=== PATIENT | male | born 1975 | race Caucasian/White ===

== ENCOUNTER → 2018-08-01 15:25 | Outpatient (CLI) | payer BC, SELFPAY ==
--- NOTE | 2018-08-01 15:38 | EKG12_ITS ---
Test Reason : PREOP Blood Pressure : / mmHG Vent. Rate : 094 BPM Atrial Rate : 094 BPM P-R Int : 182 ms QRS Dur : 086 ms QT Int : 330 ms P-R-T Axes : 036 050 024 degrees QTc Int : 412 ms Normal sinus rhythm with sinus arrhythmia Normal ECG When compared with ECG of 18-JAN-2016 05:19, [place] interval has decreased Confirmed by DUSTIN GONZALEZ [id number]), features editor ADAM RAMÍREZ ([id number] on 08/04/2018 9:37:59 AM Referred By: Doe Morelos Confirmed By:DUSTIN GONZALEZ
[2018-08-01 17:16] LABS: Hematocrit 45.9 % (40-54); Hemoglobin 15.6 g/dl (13.0-16.5); Mean Corpuscular Hgb 31.6 pg (27.0-32.0); Mean Corpuscular Volume 93.1 fL (80-94); Mean Platelet Vol. 10.1 fl (6.2-12.0); Platelet Count 271 K/mm3 (150-450); RBC Distribution Width CV 13.7 % (11.6-14.6); RBC Distribution Width SD 46.4 fl (35.1-43.9); Red Blood Count 4.93 M/mm3 (4.6-6.2); White Blood Count 10.1 K/mm3 (4.4-11.0)
[2018-08-01 17:23] LABS: Scan Indicated on CBC? Y/N NO
[2018-08-01 17:44] LABS: Anion Gap 7 (5-15); BUN 21 mg/dL (7-18); BUN/Creat Ratio 15.3 RATIO (10-20); Calcium,Total 8.7 mg/dL (8.5-10.1); Chloride 103 mmol/L (98-107); Creatinine, Serum 1.37 mg/dL (0.70-1.30); EST Glomerular Filtration Rate 61 mL/min (>60); Est Glom Filt Rate - Afr Amer 74 mL/min (>60); Glucose 85 mg/dL (74-106); Potassium 3.9 mmol/L (3.5-5.1); Sodium Level 139 mmol/L (136-145)
--- OUTSIDE RECORDS SUMMARY | 2018-09-26 14:31 | XMS RPT_ITS ---
:1975 Author Organization OHIP Care Team Providers Name Role Phone ORLIN THORPE Attending Unavailable ORLIN THORPE Referring Unavailable ORLIN THORPE Referring Unavailable LIZ HERNANDEZ Attending Unavailable ORLIN THORPE Referring Unavailable ORLIN THORPE Attending Unavailable ORLIN THORPE Referring Unavailable JULES TAYLOR ([facility]) Referring Unavailable ORLIN THORPE Referring Unavailable JULES TAYLOR ([facility]) Attending Unavailable Saleem Gonzalez Attending Unavailable Maurizio Morelos Referring Unavailable Maurizio Morelos Attending Unavailable Primay Care Physicia, No Primary Care Unavailable Maurizio Morelos Referring Unavailable PROBLEMS PROBLEMS DATE TYPE CONDITION / CODE ATTENDING STATUS SOURCE 08/11/2018 Unknown Z01.810 - Encounter Saleem Gonzalez Active [facility] for preprocedural [facility] examination / Repository Z01.810(ICD-10) 12/04/2017 Active Calculus of kidney / NA Active [facility] N20.0(ICD-10) [facility] [place] Repository 12/04/2017 Active Pure hyperglyceridemia NA Active [facility] / E78.1(ICD-10) [facility] [place] Repository 10/12/2016 Active Impaired fasting NA Active [facility] glucose / [facility] R73.01(ICD-10) [place] Repository 10/12/2016 Active Other specified NA Active [facility] abnormal findings of [facility] blood chemistry / [place] R79.89(ICD-10) Repository 11/23/2017 Active Other jail NA Active [place] (current) drug therapy [facility] / Z79.899(ICD-10) [place] Repository 11/23/2017 Active Encounter for NA Active [place] therapeutic drug level [facility] monitoring / [place] Z51.81(ICD-10) Repository PROCEDURES PROCEDURES No Procedure Records FoundRESULTS RESULTS PROGRESS Observed: 08/11/2018 Status: COMPLETED Source: [place] 11:21 AM [facility] REPOSITORY HNO ID: [id number] Author: Obdulia Samaniego LPN Service: (none) Author Type: (none) Type: Progress Notes Filed: 08/11/2018 11:25 AM Note Text: Manual Readin/86 Pulse: 102 Reason for blood pressure check - Last BP elevated Patient is: Taking medication as prescribed Yes Took medication today Yes If no, date medication last taken N/A Experiencing side effects No BP was elevated at last appt 06/11/18. No BP medication changes were made at that time. Taking all medications as prescribed. Recently nasal/sinus surgery (08/05/18). Denies any chest pain, shortness of breath, dizziness, or headaches. Occasional caffeine use. Current everyday tobacco use. Alert and oriented. Pt has been identified by name and birthdate: Yes Allergies reviewed: Yes Latex allergy: no. Medication - prescribed and OTC reviewed and updated: Yes Do you need any prescription refills prior to your next visit: No Health Maintenance: Reviewed and not up to date and provider notified Patient advised to continue with current medications and would be contacted with any further instructions after review by PCP. Obdulia Samaniego LPN CNNURSE Observed: 08/11/2018 Status: COMPLETED Source: [place] 11:15 AM [facility] REPOSITORY Nurse Visit (RUBINPWS) KATIE OLMEDO ([id number]) 1975 M Date Time Provider Department 08/11/18 11:15 AM [place] NURSE RUBINPWS During your visit today, we recorded the following information about you: Pulse Blood pressure 102/minute 128/86 Obdulia Samaniego LPN 08/11/2018 11:25 AM Signed Manual Readin/86 Pulse: 102 Reason for blood pressure check - Last BP elevated Patient is: Taking medication as prescribed Yes Took medication today Yes If no, date medication last taken N/A Experiencing side effects No BP was elevated at last appt 06/11/18. No BP medication changes were made at that time. Taking all medications as prescribed. Recently nasal/sinus surgery (08/05/18). Denies any chest pain, shortness of breath, dizziness, or headaches. Occasional caffeine use. Current everyday tobacco use. Alert and oriented. Pt has been identified by name and birthdate: Yes Allergies reviewed: Yes Latex allergy: no. Medication - prescribed and OTC reviewed and updated: Yes Do you need any prescription refills prior to your next visit: No Health Maintenance: Reviewed and not up to date and provider notified Patient advised to continue with current medications and would be contacted with any further instructions after review by PCP. Obdulia Samaniego LPN Referring Provider: SELF [[id number]] Allergies As of Date: 08/11/2018 (No Known Allergies) Date Reviewed: 06/11/2018 Reviewed by: Vivi Mendez LPN - Fully Assessed Reason for Visit: Blood Pressure Check [195] Primary Visit Diagnosis:Hypertension, essential [I10] Prescriptions as of 08/11/2018 Sig: LISINOPRIL 5 MG TABLET TAKE 1 TABLET DAILY LISINOPRIL 5 MG TABLET Take 1 tablet by mouth once d* TESTOSTERONE CYPIONATE 200 MG* INJECT 0.75 ML INTRAMUSCULARL* TAMSULOSIN 0.4 MG CAPSULE Take 1 capsule by mouth once * CHOLECALCIFEROL (VITAMIN D3) * Take 5,000 Units by mouth onc* CHOLECALCIFEROL (VITAMIN D3) * Take 1 tablet by mouth once d* Problem List As Of Date 08/11/2018 Noted Resolved Meibomian gland dysfunction (MGD) of upper and *INVALID FOR*10/12/2016 Acute bacterial conjunctivitis of both eyes [H1*INVALID FOR*10/12/2016 Vitreous floaters [H43.399] INVALID FOR*10/12/2016 Myopia [H52.10] INVALID FOR*10/12/2016 Astigmatism of both eyes [H52.203] INVALID FOR*10/12/2016 IFG (impaired fasting glucose) [R73.01] INVALID FOR* Vitamin D insufficiency [E55.9] INVALID FOR* Low testosterone level in male [R79.89] INVALID FOR* Elevated BP without diagnosis of hypertension [*INVALID FOR* Fatigue [R53.83] INVALID FOR* Hypertension, essential [I10] INVALID FOR* Hypertriglyceridemia [E78.1] INVALID FOR* Nephrolithiasis [N20.0] INVALID FOR* Obesity (BMI 30-39.9) [E66.9] INVALID FOR* Routine physical examination [Z00.00] INVALID FOR* Calcium oxalate dihydrate kidney stones [N20.0] INVALID FOR* Long-term current use of testosterone replaceme*INVALID FOR* Encounter Status:Closed by OBDULIA SAMANIEGO LPN on 08/11/18 12 LEAD ELECTROCARDIOGRAM Observed: 08/04/2018 Status: F Source: [place] 9:38 AM [facility] REPOSITORY [facility] Cardiovascular Services [address] [place] [id number] 12 Lead EKG 08/01/18 1605 MR#: [id number] Acct: [id number] Name: KATIE OLMEDO Rep #: [id number] : 1975 43 From: Saleem Gonzalez MD Attending Dr: Omkar Morelos MD Status: REG CLI Ordering Dr: Maurizio Morelos MD Date: 08/01/18 Location: LAB.FUTURE Sex: M C Admitted: Test Reason : PREOP Blood Pressure : / mmHG Vent. Rate : 094 BPM Atrial Rate : 094 BPM P-R Int : 182 ms QRS Dur : 086 ms QT Int : 330 ms P-R-T Axes : 036 050 024 degrees QTc Int : 412 ms Normal sinus rhythm with sinus arrhythmia Normal ECG When compared with ECG of 18-JAN-2016 05:19, TN interval has decreased Confirmed by SALEEM GONZALEZ ([id number]), rewrite editor ADAM RAMÍREZ ([id number]) on 08/04/2018 9:37:59 AM Referred By: Doe Morelos Confirmed By:SALEEM GONZALEZ 08/04/18 0938 Date Saleem Gonzalez MD CC: No Primary Care Physician; Omkar Morelos MD Signed CBC-COMPLETE BLOOD CNT Collected: 08/01/2018 Status: F Source: [place] NO DIFF 3:31 PM [facility] REPOSITORY TYPE CODE TESTS RESULT OUT OF RANGE REFERENCE UNITS LAB L100.1000 4.4-11.0 K/mm3 Normal WBC 10.1 LAB L100.1200 4.6-6.2 M/mm3 Normal RBC 4.93 LAB L100.1300 13.0-16.5 g/dl Normal HGB 15.6 LAB L100.1400 40-54 % Normal HCT 45.9 LAB L100.1500 80-94 fL Normal MCV 93.1 LAB L100.1600 27.0-32.0 pg Normal MCH 31.6 LAB L100.1700 32-36 g/gl Normal MCHC 34.0 LAB L100.1810 11.6-14.6 % Normal RDW CV 13.7 LAB L100.1820 35.1-43.9 fl High RDW SD 46.4 LAB L100.1900 150-450 K/mm3 Normal PLT 271 LAB L100.2000 6.2-12.0 fl Normal MPV 10.1 Performed By: #### L100.0500 #### [facility] [place], [address] BASIC METABOLIC Collected: 08/01/2018 Status: F Source: [place] PROFILE (BMP) 3:31 PM [facility] REPOSITORY TYPE CODE TESTS RESULT OUT OF RANGE REFERENCE UNITS LAB L501.0100 74-106 mg/dL Normal GLU 85 Result Comment: Please note revised GLUCOSE reference range effective 2017. LAB L501.1000 7-18 mg/dL High BUN 21 LAB L501.1100 0.70-1.30 mg/dL High CREAT,SERUM 1.37 Result Comment: The validity of the calculated GFR AND GFRAA in patients over 70 years has not been determined. Clinical correlation is essential. LAB L501.1110 >60 mL/min Normal EST GFR 61 Result Comment: Non- GFR Calc LAB L501.1115 >60 mL/min Normal EST GFR - AA 74 Result Comment: GFR Calc LAB L501.1300 10-20 RATIO Normal BUN/CRE 15.3 LAB L501.2200 8.5-10.1 mg/dL CA Normal 8.7 LAB L501.5300 136-145 mmol/L NA Normal 139 LAB L501.5600 3.5-5.1 mmol/L K Normal 3.9 Result Comment: Slight Hemolysis, Result may be falsely increased. LAB L501.5900 98-107 mmol/L Normal CL 103 LAB L501.6100 21.0-32.0 mmol/L Normal CO2 29.0 LAB L501.6200 5-15 Normal 7 GAP Performed By: #### L500.2500 #### [facility] [address] [place], [address] PROGRESS Observed: 07/18/2018 Status: COMPLETED Source: [place] 1:04 PM [facility] REPOSITORY HNO ID: [id number] Author: Farida Barnes Flaker Operator Service: (none) Author Type: (none) Type: Progress Notes Filed: 07/18/2018 1:05 PM Note Text: I spoke with Katie and he was open to coming in for a BP check with the Nurse. Appointment scheduled for 08/11/18. PROGRESS Observed: 07/18/2018 Status: COMPLETED Source: [place] 1:00 PM [facility] REPOSITORY HNO ID: [id number] Author: Farida Barnes Cma Service: (none) Author Type: (none) Type: Progress Notes Filed: 07/18/2018 1:05 PM Note Text: [facility] CARE GAP REGISTRY DOCUMENTATION (OUTSIDE TEAMLET) Provider Action/FYI: PSR Action/FYI: See if patient would be willing to come in for BP check (nurse visit) Patient identified by name and date of . Last BP/Labs: Blood Pressure: Last 3 Encounter BP Readings: Date: BP: 06/11/2018 130/100 03/04/2018 131/86 12/04/2017 100/70 Lipids: Cholesterol, Total (mg/dL) Date Value 05/31/2018 202 11/23/2017 174 HDL Cholesterol (mg/dL) Date Value 05/31/2018 42 11/23/2017 37 LDL Cholesterol (mg/dL) Date Value 05/31/2018 90 11/23/2017 Unable to calculate due to increased Triglycerides. See LDL-Chol, Direct. Triglyceride (mg/dL) Date Value 05/31/2018 348 11/23/2017 500 HGB A1C: Lab Results Component Value Date HBA1C 6.1 05/31/2018 HBA1C 6.2 11/23/2017 HBA1C 6.3 09/18/2016 TSH: TSH (uU/mL) Date Value 09/18/2016 3.290 02/08/2016 2.110 ) ? Patient has the following care gap registry disease diagnosis:HTN ? Hypertriglyceridemia ? Patient has the following open care gaps: Health Maintenance Due: BP CONTROLLED (<130/80) due on 1995 DTAP,TDAP,TD(1 - Tdap) due on 1996 ONE PNEUMOVAX PRIOR TO AGE 65 due on 1996 ? Last office visit: 11/18/2017 ? Future office visit:Nurse BP vist in next available Farida Barnes [facility] CNPTOUTREACH Observed: 07/18/2018 Status: COMPLETED Source: [place] 12:00 AM [facility] REPOSITORY Patient Outreach (INTMWS) KATIE OLMEDO ([id number]) 1975 M Date Time Provider Department 07/18/18 FARIDA BARNES ([facility]) INTMWS During your visit today, we recorded the following information about you: Farida Barnes Cma 07/18/2018 1:05 PM Signed [facility] CARE GAP REGISTRY DOCUMENTATION (OUTSIDE TEAMLET) Provider Action/FYI: PSR Action/FYI: See if patient would be willing to come in for BP check (nurse visit) Patient identified by name and date of . Last BP/Labs: Blood Pressure: Last 3 Encounter BP Readings: Date: BP: 06/11/2018 130/100 03/04/2018 131/86 12/04/2017 100/70 Lipids: Cholesterol, Total (mg/dL) Date Value 05/31/2018 202 11/23/2017 174 HDL Cholesterol (mg/dL) Date Value 05/31/2018 42 11/23/2017 37 LDL Cholesterol (mg/dL) Date Value 05/31/2018 90 11/23/2017 Unable to calculate due to increased Triglycerides. See LDL-Chol, Direct. Triglyceride (mg/dL) Date Value 05/31/2018 348 11/23/2017 500 HGB A1C: Lab Results Component Value Date HBA1C 6.1 05/31/2018 HBA1C 6.2 11/23/2017 HBA1C 6.3 09/18/2016 TSH: TSH (uU/mL) Date Value 09/18/2016 3.290 02/08/2016 2.110 ) ? Patient has the following care gap registry disease diagnosis:HTN ? Hypertriglyceridemia ? Patient has the following open care gaps: Health Maintenance Due: BP CONTROLLED (<130/80) due on 1995 DTAP,TDAP,TD(1 - Tdap) due on 1996 ONE PNEUMOVAX PRIOR TO AGE 65 due on 1996 ? Last office visit: 11/18/2017 ? Future office visit:Nurse BP vist in next available Farida Barnes [facility] Farida Barnes [facility] 07/18/2018 1:05 PM Signed I spoke with Katie and he was open to coming in for a BP check with the Nurse. Appointment scheduled for 08/11/18. Allergies As of Date: 07/18/2018 (No Known Allergies) Date Reviewed: 06/11/2018 Reviewed by: Vivi Mendez LPN - Fully Assessed Reason for Visit: PHMA/Care Gap Outreach [3605] Prescriptions as of 07/18/2018 Sig: TESTOSTERONE CYPIONATE 200 MG* INJECT 0.75 ML INTRAMUSCULARL* TAMSULOSIN 0.4 MG CAPSULE Take 1 capsule by mouth once * LISINOPRIL 5 MG TABLET Take 1 tablet by mouth once d* CHOLECALCIFEROL (VITAMIN D3) * Take 5,000 Units by mouth onc* CHOLECALCIFEROL (VITAMIN D3) * Take 1 tablet by mouth once d* Problem List As Of Date 07/18/2018 Noted Resolved Meibomian gland dysfunction (MGD) of upper and *INVALID FOR*10/12/2016 Acute bacterial conjunctivitis of both eyes [H1*INVALID FOR*10/12/2016 Vitreous floaters [H43.399] INVALID FOR*10/12/2016 Myopia [H52.10] INVALID FOR*10/12/2016 Astigmatism of both eyes [H52.203] INVALID FOR*10/12/2016 IFG (impaired fasting glucose) [R73.01] INVALID FOR* Vitamin D insufficiency [E55.9] INVALID FOR* Low testosterone level in male [R79.89] INVALID FOR* Elevated BP without diagnosis of hypertension [*INVALID FOR* Fatigue [R53.83] INVALID FOR* Hypertension, essential [I10] INVALID FOR* Hypertriglyceridemia [E78.1] INVALID FOR* Nephrolithiasis [N20.0] INVALID FOR* Obesity (BMI 30-39.9) [E66.9] INVALID FOR* Routine physical examination [Z00.00] INVALID FOR* Calcium oxalate dihydrate kidney stones [N20.0] INVALID FOR* Long-term current use of testosterone replaceme*INVALID FOR* Encounter Status:Closed by FARIDA BARNES CMA on 07/18/18 PROGRESS Observed: 06/13/2018 Status: COMPLETED Source: [place] 7:28 AM [facility] REPOSITORY O ID: [id number] Author: Orlin Thorpe Service: (none) Author Type: Physician Type: Progress Notes Filed: 06/13/2018 7:33 AM Note Text: CC: Katie Olmedo is a 42 year old male who presents to the office for physical HPI HPL, overall doing well, trying to limit sugars and starches in his diet. No soda, is regularly exercising at the gym Cholesterol, Total Date Value Ref Range Status 05/31/2018 202 (H) <200 mg/dL Final Comment: <200 mg/dL, Desirable 200-239 mg/dL, Borderline high >239 mg/dL, High HDL Cholesterol Date Value Ref Range Status 05/31/2018 42 >39 mg/dL Final Comment: 40-59 mg/dL, Acceptable >59 mg/dL, High: Negative risk factor for coronary heart disease <40 mg/dL, Low: Positive risk factor for coronary heart disease LDL Cholesterol Date Value Ref Range Status 05/31/2018 90 <100 mg/dL Final Comment: <100 mg/dL, Optimal 100-129 mg/dL, Near optimal/above optimal 130-159 mg/dL, Borderline high 160-189 mg/dL, High >189 mg/dL, Very high Secondary prevention optimal LDL Cholesterol levels are recommended to be < 70 mg/dL Triglyceride Date Value Ref Range Status 05/31/2018 348 (H) <150 mg/dL Final Comment: <150 mg/dL, Normal 150-199 mg/dL, Borderline high 200-499 mg/dL, High >499 mg/dL, Very high Testosterone deficiency, no new concerns. Taking as prescribed HM: UTD PAST MEDICAL HISTORY Diagnosis Date - Astigmatism of both eyes 09/29/2015 - Hypertension - Meibomian gland dysfunction (MGD) of upper and lower lids of both eyes 08/23/2015 - Myopia 09/29/2015 - Vitreous floaters 08/23/2015 PAST SURGICAL HISTORY Procedure Laterality Date - REMOVAL GALLBLADDER 2004 - REPAIR OF NASAL SEPTUM Septoplasty Social History: Social History Substance Use Topics - Smoking status: Former Smoker Packs/day: 0.50 Years: 1.00 Types: Cigarettes - Smokeless tobacco: Current User Types: Snuff Comment: for 36 years , 1 can of snuff daily - Alcohol use No Comment: socially FAMILY HISTORY Problem Relation Age of Onset - Adopted: Yes - No Ocular Disease No Family History - Diabetes Mother - Hypertension Mother - Heart Mother - Arthritis Mother - Aneurysm Mother - Stroke Mother - Kidney Disease Mother - other (Headache/migraine) Mother - Heart Father - Hypertension Father - GI Father Chrons - Cancer Father - Diabetes Father - other ([place]) Father Current Outpatient prescriptions: lisinopril (ZESTRIL, PRINIVIL) 5 mg tablet Take 1 tablet by mouth once daily. cholecalciferol (VITAMIN D-3) 5,000 unit tab Take 5,000 Units by mouth once daily. testosterone cypionate (DEPO-TESTOSTERONE) 200 mg/mL injection INJECT 0.75 ML INTRAMUSCULARLY EVERY 10 DAYS tamsulosin ER (FLOMAX) 0.4 mg cap Take 1 capsule by mouth once daily. As needed for kidney stones pain cholecalciferol (VITAMIN D3) 5,000 unit tab Take 1 tablet by mouth once daily. Allergies: ALLERGIES No Known Allergies ROS: See HPI PE: 06/11/18 1717 BP: 130/100 Pulse: 80 Resp: 20 Temp: 36.3 ?C (97.3 ?F) TempSrc: Left Tympanic Weight: 98.4 kg (217 lb) Height: 164.5 cm (5' 4.75) Gen: AANDO, NAD, non-toxic appearing, Pleasant, cooperative HEENT: NT/AC, PERRLA, EOMs intact b/l, nares clear and patent b/l, pharynx without erythema, exudate or lesions. Uvula midline. EACs without erythema or debris. TMs pearly villanueva with intact landmarks b/l. Neck: supple, No cervical LAD, no thyromegaly, no carotid bruits CV: RRR, normal S1 and S2, no murmurs, no gallops, no rubs, Pulses 2+ and symmetric in UE and LE b/l Lungs: normal respiratory effort, CTA b/l, no wheezing or rhonchi or rales Abd: soft, NT, ND, +BS, no hepatosplenomegaly MS: FROM all 4 extremities Neuro: CN II-XII intact b/l, strength 5/5 b/l UE and LE, DTRs 2/4 UE and LE, sensation intact. Skin: warm, dry, intact, No rashes or lesions on exposed skin. ASSESSMENT/PLAN: 1. Routine physical examination - ICD9: V70.0, ICD10: Z00.00 (primary diagnosis) - Recommended regular aerobic exercise. - Follow up for annual exam in one year. 2. Low testosterone level in male - ICD9: 790.99, ICD10: R79.89 - rx refilled, stable - TESTOSTERONE CYPIONATE 200 MG/ML INTRAMUSCULAR OIL - HYPERCOAG DIAG PNL - PSA/PROSTSPECAG SCRN 3. Long-term current use of testosterone replacement therapy - ICD9: V58.69, ICD10: Z79.890 - rx refilled, stable - TESTOSTERONE CYPIONATE 200 MG/ML INTRAMUSCULAR OIL - HYPERCOAG DIAG PNL - PSA/PROSTSPECAG SCRN 4. Calcium oxalate dihydrate kidney stones - ICD9: 592.0, ICD10: N20.0 - rx prn as below, d/w him diet modifications/prevention, if develops another stone then needs recheck renal US or CT flank - TAMSULOSIN 0.4 MG CAPSULE 5. Hypertriglyceridemia - ICD9: 272.1, ICD10: E78.1 - suboptimal control - Encouraged following a low fat, low cholesterol diet. - Discussed the benefits of regular aerobic exercise and weight loss. 6. Hypertension, essential - ICD9: 401.9, ICD10: I10 - suboptimal control - Continue current medication(s) - Recommended regular aerobic exercise. - Recommend home blood pressure monitoring, to bring results in on next visit - Goal of BP <130/80 Orlin Thorpe DO To ER if develops chest pain, shortness of breath, or severe worsening of symptoms. Discussed risks, benefits, alternatives, and potential side effects of medications. Patient expressed understanding and agreed with the plan. Orlin Thorpe DO [address] [place] [address] CNOV Observed: 06/11/2018 Status: COMPLETED Source: [place] 5:00 PM [facility] REPOSITORY Office Visit (FAMPWS) KATIE OLMEDO ([id number]) 1975 M Date Time Provider Department 06/11/18 5:00 PM ORLIN THORPE FAMMannyWS During your visit today, we recorded the following information about you: Temperature Pulse Respiration Blood pressure 97.3 degrees 80/minute 20/minute 130/100 Weight Height 98.4 kg 1.645 m Orlin Thorpe DO 06/13/2018 7:33 AM Signed CC: Katie Olmedo is a 42 year old male who presents to the office for physical HPI HPL, overall doing well, trying to limit sugars and starches in his diet. No soda, is regularly exercising at the gym Cholesterol, Total Date Value Ref Range Status 05/31/2018 202 (H) <200 mg/dL Final Comment: <200 mg/dL, Desirable 200-239 mg/dL, Borderline high >239 mg/dL, High HDL Cholesterol Date Value Ref Range Status 05/31/2018 42 >39 mg/dL Final Comment: 40-59 mg/dL, Acceptable >59 mg/dL, High: Negative risk factor for coronary heart disease <40 mg/dL, Low: Positive risk factor for coronary heart disease LDL Cholesterol Date Value Ref Range Status 05/31/2018 90 <100 mg/dL Final Comment: <100 mg/dL, Optimal 100-129 mg/dL, Near optimal/above optimal 130-159 mg/dL, Borderline high 160-189 mg/dL, High >189 mg/dL, Very high Secondary prevention optimal LDL Cholesterol levels are recommended to be < 70 mg/dL Triglyceride Date Value Ref Range Status 05/31/2018 348 (H) <150 mg/dL Final Comment: <150 mg/dL, Normal 150-199 mg/dL, Borderline high 200-499 mg/dL, High >499 mg/dL, Very high Testosterone deficiency, no new concerns. Taking as prescribed HM: UTD PAST MEDICAL HISTORY Diagnosis Date - Astigmatism of both eyes 09/29/2015 - Hypertension - Meibomian gland dysfunction (MGD) of upper and lower lids of both eyes 08/23/2015 - Myopia 09/29/2015 - Vitreous floaters 08/23/2015 PAST SURGICAL HISTORY Procedure Laterality Date - REMOVAL GALLBLADDER 2004 - REPAIR OF NASAL SEPTUM Septoplasty Social History: Social History Substance Use Topics - Smoking status: Former Smoker Packs/day: 0.50 Years: 1.00 Types: Cigarettes - Smokeless tobacco: Current User Types: Snuff Comment: for 36 years , 1 can of snuff daily - Alcohol use No Comment: socially FAMILY HISTORY Problem Relation Age of Onset - Adopted: Yes - No Ocular Disease No Family History - Diabetes Mother - Hypertension Mother - Heart Mother - Arthritis Mother - Aneurysm Mother - Stroke Mother - Kidney Disease Mother - other (Headache/migraine) Mother - Heart Father - Hypertension Father - GI Father Chrons - Cancer Father - Diabetes Father - other ([place]) Father Current Outpatient prescriptions: lisinopril (ZESTRIL, PRINIVIL) 5 mg tablet Take 1 tablet by mouth once daily. cholecalciferol (VITAMIN D-3) 5,000 unit tab Take 5,000 Units by mouth once daily. testosterone cypionate (DEPO-TESTOSTERONE) 200 mg/mL injection INJECT 0.75 ML INTRAMUSCULARLY EVERY 10 DAYS tamsulosin ER (FLOMAX) 0.4 mg cap Take 1 capsule by mouth once daily. As needed for kidney stones pain cholecalciferol (VITAMIN D3) 5,000 unit tab Take 1 tablet by mouth once daily. Allergies: ALLERGIES No Known Allergies ROS: See HPI PE: 06/11/18 1717 BP: 130/100 Pulse: 80 Resp: 20 Temp: 36.3 ?C (97.3 ?F) TempSrc: Left Tympanic Weight: 98.4 kg (217 lb) Height: 164.5 cm (5' 4.75) Gen: AANDO, NAD, non-toxic appearing, Pleasant, cooperative HEENT: NT/AC, PERRLA, EOMs intact b/l, nares clear and patent b/l, pharynx without erythema, exudate or lesions. Uvula midline. EACs without erythema or debris. TMs pearly villanueva with intact landmarks b/l. Neck: supple, No cervical LAD, no thyromegaly, no carotid bruits CV: RRR, normal S1 and S2, no murmurs, no gallops, no rubs, Pulses 2+ and symmetric in UE and LE b/l Lungs: normal respiratory effort, CTA b/l, no wheezing or rhonchi or rales Abd: soft, NT, ND, +BS, no hepatosplenomegaly MS: FROM all 4 extremities Neuro: CN II-XII intact b/l, strength 5/5 b/l UE and LE, DTRs 2/4 UE and LE, sensation intact. Skin: warm, dry, intact, No rashes or lesions on exposed skin. ASSESSMENT/PLAN: 1. Routine physical examination - ICD9: V70.0, ICD10: Z00.00 (primary diagnosis) - Recommended regular aerobic exercise. - Follow up for annual exam in one year. 2. Low testosterone level in male - ICD9: 790.99, ICD10: R79.89 - rx refilled, stable - TESTOSTERONE CYPIONATE 200 MG/ML INTRAMUSCULAR OIL - HYPERCOAG DIAG PNL - PSA/PROSTSPECAG SCRN 3. Long-term current use of testosterone replacement therapy - ICD9: V58.69, ICD10: Z79.890 - rx refilled, stable - TESTOSTERONE CYPIONATE 200 MG/ML INTRAMUSCULAR OIL - HYPERCOAG DIAG PNL - PSA/PROSTSPECAG SCRN 4. Calcium oxalate dihydrate kidney stones - ICD9: 592.0, ICD10: N20.0 - rx prn as below, d/w him diet modifications/prevention, if develops another stone then needs recheck renal US or CT flank - TAMSULOSIN 0.4 MG CAPSULE 5. Hypertriglyceridemia - ICD9: 272.1, ICD10: E78.1 - suboptimal control - Encouraged following a low fat, low cholesterol diet. - Discussed the benefits of regular aerobic exercise and weight loss. 6. Hypertension,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 lymphadenopathy Thyroid: normal size, normal texture, no palpable nodules Lungs: Breathing unlabored, clear to auscultation. No wheezing, rhonchi, rales Heart regular rate and rhythm, no murmer, normal S1/S2 Musculoskeletal: Muscular strength intact, No joint swelling, deformity, or tenderness Neuro: Gait normal. Sensation grossly intact. Normal DTR's at patella Abdomen:Normal abdominal sounds, non tender to palpation, no masses Extremities: without edema, good peripheral pulses Skin: no rashes/ erythema LAB: Ref. Range 12/01/2016 08:49 01/09/2017 16:20 05/04/2017 08:10 08/03/2017 08:37 11/23/2017 07:40 Hemoglobin A1C Latest Ref Range: 4.3 - 5.6 % 6.2 (H) Estimated Average Glucose Latest Units: mg/dL 131 FSH Latest Ref Range: 1.5 - 12.4 mU/mL 2.6 LH Latest Ref Range: 1.8 - 10.8 mU/mL 5.2 Prolactin Latest Ref Range: 4.0 - 15.2 ng/mL 17.4 (H) Testosterone Latest Ref Range: 193 - 824 ng/dL 173 (L) 81 (L) 627 455 Testosterone Free Latest Ref Range: 41.7 - 180.2 pg/mL 34.8 (L) 318.6 (H) 251.3 (H) Testosterone Free % Latest Ref Range: 1.4 - 3.2 % 4.3 (H) 5.1 (H) 5.5 (H) Vitamin D 25 Hydroxy Latest Ref Range: 31.0 - 80.0 ng/mL 28.2 (L) 52.8 ASSESSMENT/PLAN: 1) Hypogonadotropic hypogonadism 2) Obesity/BMI 36 3) weight gain 4) snoring 5) pre-diaabetes This is likely due to Obesity and underlying MASOUD Reviewed and discussed his recent biochemical evaluation Free testosterone level is very high I had an indepth discussion with the patient regarding adverse effects of testosterone replacement My suggestion is to decrease the dose to 0.75 mL and change the frequency to q 10 days Recheck a free and total testosterone level in 4 weeks No signs suggestive of cushings syndrome CBC is normal PSA needs to be monitored on a yearly basis His symptoms are suggestive of sleep apnea Indicated to him that sleep apnea can worsen with testosterone replacement He will benefit from a sleep study My suggestion is to see sleep medicine He wants to discussed this with his PCP He will also benefit from starting metformin I will notify the patient once the labs become available Follow up to be determined accordingly Liz Hernandez MD 03/04/18 Liz Hernandez MD 03/04/2018 2:40 PM Addendum Decrease testosterone to 0.75 ml, but use it every 10 days Get a testosterone level checked in 6 weeks PSA and blood counts should be monitored while you are on testosterone Consider seeing a sleep medicine physician Referring Provider: ORLIN THORPE [[id number]] Allergies As of Date: 03/04/2018 (No Known Allergies) Date Reviewed: 03/04/2018 Reviewed by: Ansley Pak Ma - Fully Assessed Reason for Visit: Low Testosterone [2926] Primary Visit Diagnosis:Hypogonadism in male [E29.1] Other Visit Diagnoses:Weight gain [R63.5] Pre-diabetes [R73.03] Obesity (BMI 30-39.9) [E66.9] Snoring [R06.83] Order(s):testosterone cypionate (DEPO-TESTOSTERONE) 200 mg/mL injectionInject 0.75 mL intramuscularly every 10 days for 92 days.Disp: Rfl: TESTOSTERONE, FREE AND TOTAL [SQFTESTO] Order #: [id number] FUTURE TESTOSTERONE TOTAL [SQTESTO] Order #: [id number] FUTURE Prescriptions as of 03/04/2018 Sig: TESTOSTERONE CYPIONATE 200 MG* Inject 0.75 mL intramuscularl* LISINOPRIL 5 MG TABLET Take 1 tablet by mouth once d* CHOLECALCIFEROL (VITAMIN D3) * Take 5,000 Units by mouth onc* CHOLECALCIFEROL (VITAMIN D3) * Take 1 tablet by mouth once d* Medication notes this encounter CHOLECALCIFEROL (VITAMIN D3) 5,000 UNIT TABLET >> Ansley Pak Ma 03/04/2018 1:56 PM >> ANSLEY PAK MA Mar 04, 2018 1:56 PM Duplicate Problem List As Of Date 03/04/2018 Noted Resolved Meibomian gland dysfunction (MGD) of upper and *INVALID FOR*10/12/2016 Acute bacterial conjunctivitis of both eyes [H1*INVALID FOR*10/12/2016 Vitreous floaters [H43.399] INVALID FOR*10/12/2016 Myopia [H52.10] INVALID FOR*10/12/2016 Astigmatism of both eyes [H52.203] INVALID FOR*10/12/2016 IFG (impaired fasting glucose) [R73.01] INVALID FOR* Vitamin D insufficiency [E55.9] INVALID FOR* Low testosterone level in male [R79.89] INVALID FOR* Elevated BP without diagnosis of hypertension [*INVALID FOR* Fatigue [R53.83] INVALID FOR* Hypertension, essential [I10] INVALID FOR* Hypertriglyceridemia [E78.1] INVALID FOR* Nephrolithiasis [N20.0] INVALID FOR* Obesity (BMI 30-39.9) [E66.9] INVALID FOR* Other instructions from your clinician: Decrease testosterone to 0.75 ml, but use it every 10 days Get a testosterone level checked in 6 weeks PSA and blood counts should be monitored while you are on testosterone Consider seeing a sleep medicine physician Prescriptions ordered this encounter Disp Refills Start End TESTOSTERONE CYPIONATE 200 MG/ML INT* 03/04/2018 06/04/2018 Class: Med Update Route: INTRAMUSCULA Sig: Inject 0.75 mL intramuscularly every 10 days for 92 days. Medications Discontinued During This Encounter testosterone cypionate (DEPO-TESTOST* 2 mL 5 12/04/2017 03/04/2018 Class: Print RX Route: INTRAMUSCULAR Sig: Inject 1 mL intramuscularly every 2 weeks for 30 days. Disc: Reason for discontinue is not on file. Encounter Status:Closed by LIZ HERNANDEZ DO on 03/06/18 CNCO Observed: 03/04/2018 Status: COMPLETED Source: [place] 12:[address] [facility] [place] REPOSITORY Letter Text Dear Katie Olmedo: How to activate your [facility] [employer] Account 1. Visit the [employer] Signup page at [email or web address] 2. Identify yourself using your one-time use activation code: [email or web address] 3. Follow the on-screen prompts to choose your own secure username and password The following information will be necessary to access your account for the first time: Information needed for sign-up: Your custom activation code used one-time only for the initial account set-up. Your date of The last 4 digits of your social security number What to do next: Fill in the requested information on the Identify Yourself Form at [email or web address] , click Next. Create your login and password, choose a [employer] ID and password that will be easy for you to use, but impossible for anyone else to guess. Pick a security question that will assist you in the event you forget your password the next time you log-on. If you have difficulty activating your account, please call our [employer] helpline at [phone] or toll free at . We hope you enjoy using [employer]! Kindest Regards, [facility] [employer] Team PROGRESS Observed: 12/04/2017 Status: COMPLETED Source: [place] 5:33 PM [facility] REPOSITORY HNO ID: [id number] Author: Orlin Thorpe Service: (none) Author Type: Physician Type: Progress Notes Filed: 12/04/2017 5:45 PM Note Text: CC: Katie Olmedo is a 42 year old male who presents to the office for medication follow up HPI: HTN, essential, taking lisinopril 5 mg a day, tolerating well, no CP or dyspnea or dizziness/LH Hypertriglyceridemia, admits to lots of fast food intake Cholesterol, Total Date Value Ref Range Status 11/23/2017 174 <200 mg/dL Final Comment: <200 mg/dL, Desirable 200-239 mg/dL, Borderline high >239 mg/dL, High HDL Cholesterol Date Value Ref Range Status 11/23/2017 37 (L) >39 mg/dL Final Comment: 40-59 mg/dL, Acceptable >59 mg/dL, High: Negative risk factor for coronary heart disease <40 mg/dL, Low: Positive risk factor for coronary heart disease LDL Cholesterol Date Value Ref Range Status 11/23/2017 Unable to calculate due to increased Triglycerides. See LDL-Chol, Direct. <100 mg/dL Final Triglyceride Date Value Ref Range Status 11/23/2017 500 (H) <150 mg/dL Final Comment: <150 mg/dL, Normal 150-199 mg/dL, Borderline high 200-499 mg/dL, High >499 mg/dL, Very high Glucose (mg/dL) Date Value 03/16/2016 95 Potassium (mmol/L) Date Value 03/16/2016 4.2 Sodium (mmol/L) Date Value 03/16/2016 139 Chloride (mmol/L) Date Value 03/16/2016 104 CO2 (mmol/L) Date Value 03/16/2016 22 Creatinine (mg/dL) Date Value 03/16/2016 1.26 BUN (mg/dL) Date Value 03/16/2016 17 Anion Gap (mmol/L) Date Value 03/16/2016 13 Calcium (mg/dL) Date Value 03/16/2016 8.7 Protein, Total (g/dL) Date Value 11/23/2017 6.8 Albumin (g/dL) Date Value 11/23/2017 3.9 Bilirubin, Total (mg/dL) Date Value 11/23/2017 0.3 Alkaline Phosphatase (U/L) Date Value 11/23/2017 54 AST (U/L) Date Value 11/23/2017 21 ALT (U/L) Date Value 11/23/2017 30 Hemoglobin (g/dL) Date Value 11/23/2017 14.9 Hematocrit (%) Date Value 11/23/2017 46.2 WBC (k/uL) Date Value 11/23/2017 8.47 Testosterone deficiency, tolerating IM injection with improvement in mood and fatigue and muscle strength. PAST MEDICAL HISTORY Diagnosis Date - Astigmatism of both eyes 09/29/2015 - Hypertension - Meibomian gland dysfunction (MGD) of upper and lower lids of both eyes 08/23/2015 - Myopia 09/29/2015 - Vitreous floaters 08/23/2015 PAST SURGICAL HISTORY Procedure Laterality Date - REMOVAL GALLBLADDER 2005 - REPAIR OF NASAL SEPTUM Septoplasty Current Outpatient Prescriptions: testosterone cypionate (DEPO-TESTOSTERONE) 200 mg/mL injection Inject 1 mL intramuscularly every 2 weeks for 30 days. lisinopril (ZESTRIL, PRINIVIL) 5 mg tablet Take 1 tablet by mouth once daily. cholecalciferol (VITAMIN D-3) 5,000 unit tab Take 5,000 Units by mouth once daily. cholecalciferol (VITAMIN D3) 5,000 unit tab Take 1 tablet by mouth once daily. No current facility-administered medications for this visit. ALLERGIES No Known Allergies Social History Marital status: Single Spouse name: Years of education: Number of children: Social History Main Topics Smoking status: Former Smoker Packs/day: 0.50 Years: 1.00 Types: Cigarettes Smokeless status: Current User Types: Snuff Comment: for 36 years , 1 can of snuff daily Alcohol use: No Comment: socially Drug use: No ROS: See HPI. PE: BP 100/70 Pulse 76 Temp (Src) 97.2 (Left Tympanic) Resp 20 Wt 217 lb (98.4kg) Gen: AANDOX3, NAD, non-toxic appearing HEENT: PERRLA, EOMs intact b/l, nares without drainage, pharynx without erythema, exudate, lesions, or drainage. Uvula midline. Neck: No LAD, no thyromegaly, no meningismus. CV: RRR, no murmur Lungs: CTA b/l, no wheezing Skin: No rashes, lesions, or wounds on exposed skin. No edema, normal pulses ASSESSMENT/PLAN: 1. IFG (impaired fasting glucose) - ICD9: 790.21, ICD10: R73.01 (primary diagnosis) - recheck labs, diet changes as d/w him today - HGB A1C - BASIC METABOLIC PNL 2. Nephrolithiasis - ICD9: 592.0, ICD10: N20.0 - STONE PANEL URINE 3. Hypertriglyceridemia - ICD9: 272.1, ICD10: E78.1 - good control - Encouraged following a low fat, low cholesterol diet. - Discussed the benefits of regular aerobic exercise and weight loss. - Check fasting lipid panel - LIPID PANEL BASIC 4. Low testosterone level in male - ICD9: 790.99, ICD10: R79.89 - rx refilled, much improved - TESTOSTERONE CYPIONATE 200 MG/ML INTRAMUSCULAR OIL 5. Vitamin D insufficiency - ICD9: 268.9, ICD10: E55.9 - continue supplement 6. Hypertension, essential - ICD9: 401.9, ICD10: I10 - good control - Continue current medication(s) - Encouraged dietary sodium restriction/DASH diet - Recommended regular aerobic exercise. - Recommend home blood pressure monitoring, to bring results in on next visit - Goal of BP <130/80 Orlin Thorpe DO Return if no improvement. Follow up with Orlin Thorpe DO. Discussed risks, benefits, alternatives, and potential side effects of medications. Patient/Guardian expressed understanding and agreed with the plan. See patient instructions. Orlin Thorpe DO [address] [place] [address] CNOV Observed: 12/04/2017 Status: COMPLETED Source: [place] 4:40 PM [facility] REPOSITORY Office Visit (FAMPWS) KATIE OLMEDO ([id number]) 1975 M Date Time Provider Department 12/04/17 4:40 PM [facility] During your visit today, we recorded the following information about you: Temperature Pulse Respiration Blood pressure 97.2 degrees 76/minute 20/minute 100/70 Weight 98.4 kg Orlin Thorpe DO 12/04/2017 5:45 PM Signed CC: Katie Olmedo is a 42 year old male who presents to the office for medication follow up HPI: HTN, essential, taking lisinopril 5 mg a day, tolerating well, no CP or dyspnea or dizziness/LH Hypertriglyceridemia, admits to lots of fast food intake Cholesterol, Total Date Value Ref Range Status 11/23/2017 174 ANDlt;200 mg/dL Final Comment: ANDlt;200 mg/dL, Desirable 200-239 mg/dL, Borderline high ANDgt;239 mg/dL, High HDL Cholesterol Date Value Ref Range Status 11/23/2017 37 (L) ANDgt;39 mg/dL Final Comment: 40-59 mg/dL, Acceptable ANDgt;59 mg/dL, High: Negative risk factor for coronary heart disease ANDlt;40 mg/dL, Low: Positive risk factor for coronary heart disease LDL Cholesterol Date Value Ref Range Status 11/23/2017 Unable to calculate due to increased Triglycerides. See LDL-Chol, Direct. ANDlt;100 mg/dL Final Triglyceride Date Value Ref Range Status 11/23/2017 500 (H) ANDlt;150 mg/dL Final Comment: ANDlt;150 mg/dL, Normal 150-199 mg/dL, Borderline high 200-499 mg/dL, High ANDgt;499 mg/dL, Very high Glucose (mg/dL) Date Value 03/16/2016 95 Potassium (mmol/L) Date Value 03/16/2016 4.2 Sodium (mmol/L) Date Value 03/16/2016 139 Chloride (mmol/L) Date Value 03/16/2016 104 CO2 (mmol/L) Date Value 03/16/2016 22 Creatinine (mg/dL) Date Value 03/16/2016 1.26 BUN (mg/dL) Date Value 03/16/2016 17 Anion Gap (mmol/L) Date Value 03/16/2016 13 Calcium (mg/dL) Date Value 03/16/2016 8.7 Protein, Total (g/dL) Date Value 11/23/2017 6.8 Albumin (g/dL) Date Value 11/23/2017 3.9 Bilirubin, Total (mg/dL) Date Value 11/23/2017 0.3 Alkaline Phosphatase (U/L) Date Value 11/23/2017 54 AST (U/L) Date Value 11/23/2017 21 ALT (U/L) Date Value 11/23/2017 30 Hemoglobin (g/dL) Date Value 11/23/2017 14.9 Hematocrit (%) Date Value 11/23/2017 46.2 WBC (k/uL) Date Value 11/23/2017 8.47 Testosterone deficiency, tolerating IM injection with improvement in mood and fatigue and muscle strength. PAST MEDICAL HISTORY Diagnosis Date - Astigmatism of both eyes 09/29/2015 - Hypertension - Meibomian gland dysfunction (MGD) of upper and lower lids of both eyes 08/23/2015 - Myopia 09/29/2015 - Vitreous floaters 08/23/2015 PAST SURGICAL HISTORY Procedure Laterality Date - REMOVAL GALLBLADDER 2005 - REPAIR OF NASAL SEPTUM Septoplasty Current Outpatient Prescriptions: testosterone cypionate (DEPO-TESTOSTERONE) 200 mg/mL injection Inject 1 mL intramuscularly every 2 weeks for 30 days. lisinopril (ZESTRIL, PRINIVIL) 5 mg tablet Take 1 tablet by mouth once daily. cholecalciferol (VITAMIN D-3) 5,000 unit tab Take 5,000 Units by mouth once daily. cholecalciferol (VITAMIN D3) 5,000 unit tab Take 1 tablet by mouth once daily. No current facility-administered medications for this visit. ALLERGIES No Known Allergies Social History Marital status: Single Spouse name: Years of education: Number of children: Social History Main Topics Smoking status: Former Smoker Packs/day: 0.50 Years: 1.00 Types: Cigarettes Smokeless status: Current User Types: Snuff Comment: for 36 years , 1 can of snuff daily Alcohol use: No Comment: socially Drug use: No ROS: See HPI. PE: BP 100/70 Pulse 76 Temp (Src) 97.2 (Left Tympanic) Resp 20 Wt 217 lb (98.4kg) Gen: AANDamp;OX3, NAD, non-toxic appearing HEENT: PERRLA, EOMs intact b/l, nares without drainage, pharynx without erythema, exudate, lesions, or drainage. Uvula midline. Neck: No LAD, no thyromegaly, no meningismus. CV: RRR, no murmur Lungs: CTA b/l, no wheezing Skin: No rashes, lesions, or wounds on exposed skin. No edema, normal pulses ASSESSMENT/PLAN: 1. IFG (impaired fasting glucose) - ICD9: 790.21, ICD10: R73.01 (primary diagnosis) - recheck labs, diet changes as d/w him today - HGB A1C - BASIC METABOLIC PNL 2. Nephrolithiasis - ICD9: 592.0, ICD10: N20.0 - STONE PANEL URINE 3. Hypertriglyceridemia - ICD9: 272.1, ICD10: E78.1 - good control - Encouraged following a low fat, low cholesterol diet. - Discussed the benefits of regular aerobic exercise and weight loss. - Check fasting lipid panel - LIPID PANEL BASIC 4. Low testosterone level in male - ICD9: 790.99, ICD10: R79.89 - rx refilled, much improved - TESTOSTERONE CYPIONATE 200 MG/ML INTRAMUSCULAR OIL 5. Vitamin D insufficiency - ICD9: 268.9, ICD10: E55.9 - continue supplement 6. Hypertension, essential - ICD9: 401.9, ICD10: I10 - good control - Continue current medication(s) - Encouraged dietary sodium restriction/DASH diet - Recommended regular aerobic exercise. - Recommend home blood pressure monitoring, to bring results in on next visit - Goal of BP ANDlt;130/80 Orlin Thorpe DO Return if no improvement. Follow up with Orlin Thorpe DO. Discussed risks, benefits, alternatives, and potential side effects of medications. Patient/Guardian expressed understanding and agreed with the plan. See patient instructions. Orlin Thorpe DO [address] [place] [address] Referring Provider: ORLIN THORPE [[id number]] Allergies As of Date: 12/04/2017 (No Known Allergies) Date Reviewed: 12/04/2017 Reviewed by: Vivi Miriam-Green [employer] - Fully Assessed Reason for Visit: Follow Up [171] Cmt: medication Primary Visit Diagnosis:IFG (impaired fasting glucose) [R73.01] Other Visit Diagnoses:Nephrolithiasis [N20.0] Hypertriglyceridemia [E78.1] Low testosterone level in male [R79.89] Vitamin D insufficiency [E55.9] Hypertension, essential [I10] Order(s):STONE PANEL URINE [SQSTN4] Order #: [id number] FUTURE HGB A1C [EYCCY9N] Order #: [id number] FUTURE LIPID PANEL BASIC [SQLIPB] Order #: [id number] FUTURE BASIC METABOLIC PNL [SQBMP] Order #: [id number] FUTURE testosterone cypionate (DEPO-TESTOSTERONE) 200 mg/mL injectionInject 1 mL intramuscularly every 2 weeks for 30 days.Disp: 2 mLRfl: 5 Prescriptions as of 12/04/2017 Sig: TESTOSTERONE CYPIONATE 200 MG* Inject 1 mL intramuscularly e* LISINOPRIL 5 MG TABLET Take 1 tablet by mouth once d* CHOLECALCIFEROL (VITAMIN D3) * Take 5,000 Units by mouth onc* CHOLECALCIFEROL (VITAMIN D3) * Take 1 tablet by mouth once d* Problem List As Of Date 12/04/2017 Noted Resolved Meibomian gland dysfunction (MGD) of upper and *INVALID FOR*10/12/2016 Acute bacterial conjunctivitis of both eyes [H1*INVALID FOR*10/12/2016 Vitreous floaters [H43.399] INVALID FOR*10/12/2016 Myopia [H52.10] INVALID FOR*10/12/2016 Astigmatism of both eyes [H52.203] INVALID FOR*10/12/2016 IFG (impaired fasting glucose) [R73.01] INVALID FOR* Vitamin D insufficiency [E55.9] INVALID FOR* Low testosterone level in male [R79.89] INVALID FOR* Elevated BP without diagnosis of hypertension [*INVALID FOR* Fatigue [R53.83] INVALID FOR* Hypertension, essential [I10] INVALID FOR* Hypertriglyceridemia [E78.1] INVALID FOR* Nephrolithiasis [N20.0] INVALID FOR* Prescriptions ordered this encounter Disp Refills Start End TESTOSTERONE CYPIONATE 200 MG/ML INT* 2 mL 5 12/04/2017 01/03/2018 Class: Print RX Route: INTRAMUSCULA Sig: Inject 1 mL intramuscularly every 2 weeks for 30 days. Medications Discontinued During This Encounter testosterone (ANDROGEL) 20.25 mg/1.2* 1 Tio* 1 03/21/2017 12/04/2017 Class: Call Rx Si.5 mg applied once daily in the morning to the shoulder and upper arms. Dx: testosterone deficiency, male hypogonadism Disc: Reason for discontinue is not on file. gemfibrozil (LOPID) 600 mg tablet 30 t* 2 12/03/2017 12/04/2017 Route: ORAL Sig: Take 1 tablet by mouth twice daily before meals. Disc: Reason for discontinue is not on file. testosterone cypionate (DEPO-TESTOST* 2 mL 0 11/13/2017 12/04/2017 Class: Print RX Route: INTRAMUSCULAR Sig: Inject 1 mL intramuscularly every 2 weeks for 30 days. Disc: Reason for discontinue is not on file. Encounter Status:Closed by ORLIN THORPE DO on 12/04/17 AMYLASE Collected: 11/29/2017 Status: F Source: [place] 10:02 AM [facility] REPOSITORY TYPE CODE TESTS RESULT OUT OF REFERENCE UNITS RANGE LAB AMYL 30-104 U/L Amylase 83 Performed By: #### AMYL, GGT, LIPA #### [facility] [address] [address] GGT Collected: 11/29/2017 Status: F Source: [place] 10:02 AM [facility] REPOSITORY TYPE CODE TESTS RESULT OUT OF RANGE REFERENCE UNITS LAB GGT 10-70 U/L GGT 31 Performed By: #### AMYL, GGT, LIPA #### [facility] [address] [place], [place] [address] LIPASE Collected: 11/29/2017 Status: F Source: [place] 10:02 AM [facility] REPOSITORY TYPE CODE TESTS RESULT OUT OF REFERENCE UNITS RANGE LAB LIPA 16-61 U/L Lipase 45 Performed By: #### AMYL, GGT, LIPA #### [facility] [address] [place], [place] [address] CBC Collected: 11/23/2017 Status: F Source: [place] 7:40 AM [facility] REPOSITORY TYPE CODE TESTS RESULT OUT OF REFERENCE UNITS RANGE LAB WBC 3.70-11.00 k/uL WBC 8.47 LAB RBC 4.20-6.00 m/uL RBC 4.77 LAB HGB 13.0-17.0 g/dL Hemoglobin 14.9 LAB HCT 39.0-51.0 % Hematocrit 46.2 LAB MCV 80.0-100.0 fL MCV 96.9 LAB MCH 26.0-34.0 pG MCH 31.2 LAB MCHC 30.5-36.0 g/dL MCHC 32.3 LAB RDWCV 11.5-15.0 % RDW-CV 14.6 LAB PLTCT 150-400 k/uL Platelet Count 294 LAB MPV 9.0-12.7 fL MPV 10.2 LAB ABSNUC <0.01 k/uL Absolute nRBC <0.01 Performed By: #### CBC, LIPB, LDLDCT, HFP, FTESTO #### [facility] [address] [id number] LIPID PANEL, BASIC Collected: 11/23/2017 Status: F Source: [place] 7:40 AM [facility] REPOSITORY TYPE CODE TESTS RESULT OUT OF REFERENCE UNITS RANGE LAB CHOL <200 mg/dL Cholesterol 174 Result Comment: <200 mg/dL, Desirable 200-239 mg/dL, Borderline high >239 mg/dL, High LAB TRIGLY <150 mg/dL Triglyceride High 500 Result Comment: <150 mg/dL, Normal 150-199 mg/dL, Borderline high 200-499 mg/dL, High >499 mg/dL, Very high LAB HDL >39 mg/dL HDL-Cholesterol Low 37 Result Comment: 40-59 mg/dL, Acceptable >59 mg/dL, High: Negative risk factor for coronary heart disease <40 mg/dL, Low: Positive risk factor for coronary heart disease LAB LDL <100 mg/dL LDL-Cholesterol Unable to calculate due to increased Triglycerides. See LDL-Chol, Direct. LAB NONHDL <130 mg/dL Non HDL Cholesterol 137 High Result Comment: <130 mg/dL, Optimal 130-159 mg/dL, Near optimal/above optimal 160-189 mg/dL, Borderline high 190-219 mg/dL, High >219 mg/dL, Very high Secondary prevention optimal non HDL Cholesterol levels are recommended to be < 100 mg/dL LAB FT hrs Fasting Time 12 LAB VLDL <30 mg/dL VLDL Cholesterol Unable to calculate due to increased Triglycerides. See LDL-Chol, Direct. LAB TCHDL <5.10 TC:HDL Ratio 4.70 LAB LDLHDL <2.54 LDL:HDL Ratio Unable to calculate due to elevated Triglycerides. Result Comment: Reference: 1. National Cholesterol Education Program ATP III Guideline At-A-Glance Quick Desk Reference: National Heart, Lung, and Blood [place]. National Institutes of Health. 2001: NIH Publication No. 01-3305. 2. An International Atherosclerosis Society position paper: global recommendations for the management of dyslipidemia: executive summary, Atherosclerosis. 2014: 232(2):410-413. Performed By: #### CBC, LIPB, LDLDCT, HFP, FTESTO #### [facility] [place] [address] [place], [place] [address] LDL-CHOL, DIRECT Collected: 11/23/2017 Status: F Source: [place] 7:40 AM [facility] REPOSITORY TYPE CODE TESTS RESULT OUT OF REFERENCE UNITS RANGE LAB LDLDIR <100 mg/dL LDL-Chol, 95 Direct Result Comment: <100 mg/dL, Optimal 100-129 mg/dL, Near optimal/above optimal 130-159 mg/dL, Borderline high 160-189 mg/dL, High >189 mg/dL, Very high Secondary prevention optimal LDL Cholesterol levels are recommended to be < 70 mg/dL LAB VLDL1 <30 mg/dL VLDL Cholesterol High 42 Performed By: #### CBC, LIPB, LDLDCT, HFP, FTESTO #### [facility] [address], [place] [address] HEPATIC FUNCTN PANEL Collected: 11/23/2017 Status: F Source: [place] 7:40 AM [facility] REPOSITORY TYPE CODE TESTS RESULT OUT OF REFERENCE UNITS RANGE LAB ALB 3.9-4.9 g/dL Albumin 3.9 LAB TBIL 0.2-1.3 mg/dL Bilirubin, Total 0.3 LAB CBIL <0.2 mg/dL Bilirubin,Conjuga <0.2 nancy LAB ALKP 36-108 U/L Alkaline Phosphatase 54 LAB AST 14-40 U/L AST 21 LAB ALT 10-54 U/L ALT 30 LAB TP 6.3-8.0 g/dL Protein, Total 6.8 Performed By: #### CBC, LIPB, LDLDCT, HFP, FTESTO #### [facility] [address], [place] [address] FREE TESTOSTERONE Collected: 11/23/2017 Status: F Source: [place] 7:40 AM [facility] REPOSITORY TYPE CODE TESTS RESULT OUT OF REFERENCE UNITS RANGE LAB TESTO 193-824 ng/dL Testosterone 455 Result Comment: A testosterone level in the 193-320 ng/dL range with associated clinical symptoms is considered low and may indicate hypogonadism (from [place] 2010 363:123-135). Results >320 ng/dL are considered normal. LAB FREE 1.4-3.2 % Free Testosterone High % 5.5 Result Comment: Result rechecked. LAB FRTSTO 41.7-180.2 pg/mL Free High Testosterone 251.3 Result Comment: Result rechecked. This test was developed and its performance characteristics determined by [facility]'s [facility] [place] ([facility]). It has not been cleared or approved by the FDA. -[facility] is regulated under CLIA as qualified to perform high-complexity testing. This test is used for clinical purposes. It should not be regarded as investigational or for research. Performed By: #### CBC, LIPB, LDLDCT, HFP, FTESTO #### [facility] [address], [place] [address] HEMOGLOBIN A1C Collected: 11/23/2017 Status: F Source: [place] 7:40 AM [facility] REPOSITORY TYPE CODE TESTS RESULT OUT OF REFERENCE UNITS RANGE LAB HGBA1C 4.3-5.6 % High Hemoglobin A1c 6.2 LAB HBA0 mg/dL Est. Average Glucose 131 Result Comment: eAG: (Estimated average glucose) is a calculated value from HgbA1c and is instruments sales representative of the average blood glucose level in the last 2-3 month period. Performed By: #### HBA1C #### [facility] [address], [place] [address] PROGRESS Observed: 11/18/2017 Status: COMPLETED Source: [place] 4:15 PM [facility] REPOSITORY HNO ID: [id number] Author: Jules (Supervising Law Enforcement Analyst) DENICE Taylor.CANDY MIXER Service: (none) Author Type: Nurse Practitioner Type: Progress Notes Filed: 11/18/2017 5:13 PM Note Text: CC: Patient presents with: Recheck: Medication follow up HPI Katie Olmedo is a 42 year old male who presents today for medication follow up. Patient currently on Testosterone replacement. Reports doing well overall without complaints or concerns for this visit. Notes that his energy levels have dramatically increased. States he doesn't like to sit still and is considering getting a second job. Notes that his sleep is adequate most of the time, does note difficulty falling asleep at times. Reports history of insomnia. Currently exercises 3-4 times per week by weight lifting with a friend. Notes intentional weight loss since breaking up with his now ex-girlfriend. Also notes he has dramatically changed his diet as he is concerned about developing diabetes in the future. States he has cut down caffeine to 1 cup per day, cut out most carbs and sugars. Increased his water intake. Reports intermittent headaches that have since improved now that BP is controlled. General symptoms: Fatigue: Greatly improved. Doesn't like to be still, considering getting a second job Reports difficulty falling asleep, history of mild insomnia ~10 years ago, he wakes up feeling rested most of the time Currently lifts weight 3-4 days a week Weight change: notes some weight loss since ending previous relationship and has changed his diet. Cut out majority of carbs, decreased caffeine and sugars No radiation exposure No history of malignancy or mumps Occasional headaches that are greatly improved since diagnosed with HTN. Notes some visual changes- a moving whitish-silver bear river intermittently. Does wear contacts No changes in libido Component Latest Ref Rng AND Units 05/04/2017 08/03/2017 Testosterone 193 - 824 ng/dL 81 (L) 627 Testosterone Free % 1.4 - 3.2 % 4.3 (H) 5.1 (H) Testosterone Free 41.7 - 180.2 pg/mL 34.8 (L) 318.6 (H) REVIEW OF SYSTEMS General: no fevers, no chills, no night sweats, no recurrent infections, no change in appetite, no change in energy and See HPI HEENT: no frequent or significant headaches, no changes in hearing, no nose bleeds, no sinus or nasal problems Neck: no lumps, no pain and no swelling Respiratory: no wheezing, no shortness of breath, no hemoptysis intermittent cough Cardiovascular: no chest pain, no chest pressure and no swelling GI: No nausea, vomiting, or diarrhea : No history of dysuria, frequency or incontinence Skin: Negative for lesions, rash, and itching Neurologic: No headache, weakness, numbness, tingling, neck stiffness, tremor, vertigo, dizziness, memory loss, syncope. PAST MEDICAL HISTORY Diagnosis Date - Astigmatism of both eyes 09/29/2015 - Hypertension - Meibomian gland dysfunction (MGD) of upper and lower lids of both eyes 08/23/2015 - Myopia 09/29/2015 - Vitreous floaters 08/23/2015 PAST SURGICAL HISTORY Procedure Laterality Date - REMOVAL GALLBLADDER 2004 - REPAIR OF NASAL SEPTUM Septoplasty ALLERGIES Review of patient's allergies indicates no known allergies. MEDICATIONS testosterone cypionate (DEPO-TESTOSTERONE) 200 mg/mL injection Inject 1 mL intramuscularly every 2 weeks for 30 days. lisinopril (ZESTRIL, PRINIVIL) 5 mg tablet Take 1 tablet by mouth once daily. testosterone (ANDROGEL) 20.25 mg/1.25 gram (1.62 %) glpm 40.5 mg applied once daily in the morning to the shoulder and upper arms.Dx: testosterone deficiency, male hypogonadism cholecalciferol (VITAMIN D-3) 5,000 unit tab Take 5,000 Units by mouth once daily. cholecalciferol (VITAMIN D3) 5,000 unit tab Take 1 tablet by mouth once daily. FAMILY HISTORY Problem Relation Age of Onset - Adopted: Yes - No Ocular Disease No Family History - Diabetes Mother - Hypertension Mother - Heart Mother - Arthritis Mother - Aneurysm Mother - Stroke Mother - Kidney Disease Mother - Headache/migraine [OTHER] Mother - Heart Father - Hypertension Father - GI Father Chrons - Cancer Father - Diabetes Father - [place] [OTHER] Father Social History Substance Use Topics - Smoking status: Former Smoker Packs/day: 0.50 Years: 1.00 Types: Cigarettes - Smokeless tobacco: Current User Types: Snuff Comment: for 36 years , 1 can of snuff daily - Alcohol use No Comment: socially PHYSICAL EXAM BP 118/80 Pulse 97 Temp 36.7 ?C (98 ?F) (Temporal Artery) Resp 16 Wt 101.6 kg (224 lb) SpO2 98% BMI 37.56 kg/m2 General Appearance: well appearing, in no acute distress, alert Skin: Skin color, texture, turgor normal for age; Head: normocephalic, atraumatic Eyes: conjunctiva pink and moist, no icterus, sclera white, non-injected Lungs: Lungs clear to auscultation. No wheezing, rhonchi, rales Heart: RRR without murmur, gallop, or rubs. No ectopy TETANUS due on 1988 ONE PNEUMOVAX PRIOR TO AGE 65 due on 1996 LIPID SCREEN due on 03/16/2021 INFLUENZA Completed ASSESSMENT/PLAN: 1. Low testosterone level in male - ICD9: 790.99, ICD10: R79.89 (primary diagnosis) - TESTOSTERONE, FREE AND TOTAL - LIPID PANEL BASIC - HEPATIC FUNCTION PNL - CBC - Discussed need to keep follow up with PCP next month. Patient verbalizes understanding 2. Medication monitoring encounter - ICD9: V58.83, ICD10: Z51.81 - LIPID PANEL BASIC - HEPATIC FUNCTION PNL - CBC Prescription instructions reviewed with patient as applicable. Potential red flag symptoms discussed with the patient. Reviewed appropriate action plan to take if red flag symptoms occur. Patient agreeable to treatment plan. Jules Taylor APRN.CNP CNOV Observed: 11/18/2017 Status: COMPLETED Source: [place] 4:00 PM [facility] REPOSITORY Office Visit (INTMWS) KATIE OLMEDO ([id number]) 1975 M Date Time Provider Department 11/18/17 4:00 PM JULES TAYLOR) INTMWS During your visit today, we recorded the following information about you: Temperature Pulse Respiration Blood pressure 98 degrees 97/minute 16/minute 118/80 Weight 101.6 kg Jules Taylor APRN.CNP, APRN.CNP 11/18/2017 5:13 PM Signed CC: Patient presents with: Recheck: Medication follow up HPI Katie Olmedo is a 42 year old male who presents today for medication follow up. Patient currently on Testosterone replacement. Reports doing well overall without complaints or concerns for this visit. Notes that his energy levels have dramatically increased. States he doesn't like to sit still and is considering getting a second job. Notes that his sleep is adequate most of the time, does note difficulty falling asleep at times. Reports history of insomnia. Currently exercises 3-4 times per week by weight lifting with a friend. Notes intentional weight loss since breaking up with his now ex-girlfriend. Also notes he has dramatically changed his diet as he is concerned about developing diabetes in the future. States he has cut down caffeine to 1 cup per day, cut out most carbs and sugars. Increased his water intake. Reports intermittent headaches that have since improved now that BP is controlled. General symptoms: Fatigue: Greatly improved. Doesn't like to be still, considering getting a second job Reports difficulty falling asleep, history of mild insomnia ~10 years ago, he wakes up feeling rested most of the time Currently lifts weight 3-4 days a week Weight change: notes some weight loss since ending previous relationship and has changed his diet. Cut out majority of carbs, decreased caffeine and sugars No radiation exposure No history of malignancy or mumps Occasional headaches that are greatly improved since diagnosed with HTN. Notes some visual changes- a moving whitish-silver bear river intermittently. Does wear contacts No changes in libido Component Latest Ref Rng ANDamp; Units 05/04/2017 08/03/2017 Testosterone 193 - 824 ng/dL 81 (L) 627 Testosterone Free % 1.4 - 3.2 % 4.3 (H) 5.1 (H) Testosterone Free 41.7 - 180.2 pg/mL 34.8 (L) 318.6 (H) REVIEW OF SYSTEMS General: no fevers, no chills, no night sweats, no recurrent infections, no change in appetite, no change in energy and See HPI HEENT: no frequent or significant headaches, no changes in hearing, no nose bleeds, no sinus or nasal problems Neck: no lumps, no pain and no swelling Respiratory: no wheezing, no shortness of breath, no hemoptysis intermittent cough Cardiovascular: no chest pain, no chest pressure and no swelling GI: No nausea, vomiting, or diarrhea : No history of dysuria, frequency or incontinence Skin: Negative for lesions, rash, and itching Neurologic: No headache, weakness, numbness, tingling, neck stiffness, tremor, vertigo, dizziness, memory loss, syncope. PAST MEDICAL HISTORY Diagnosis Date - Astigmatism of both eyes 09/29/2015 - Hypertension - Meibomian gland dysfunction (MGD) of upper and lower lids of both eyes 08/23/2015 - Myopia 09/29/2015 - Vitreous floaters 08/23/2015 PAST SURGICAL HISTORY Procedure Laterality Date - REMOVAL GALLBLADDER 2004 - REPAIR OF NASAL SEPTUM Septoplasty ALLERGIES Review of patient's allergies indicates no known allergies. MEDICATIONS testosterone cypionate (DEPO-TESTOSTERONE) 200 mg/mL injection Inject 1 mL intramuscularly every 2 weeks for 30 days. lisinopril (ZESTRIL, PRINIVIL) 5 mg tablet Take 1 tablet by mouth once daily. testosterone (ANDROGEL) 20.25 mg/1.25 gram (1.62 %) glpm 40.5 mg applied once daily in the morning to the shoulder and upper arms.Dx: testosterone deficiency, male hypogonadism cholecalciferol (VITAMIN D-3) 5,000 unit tab Take 5,000 Units by mouth once daily. cholecalciferol (VITAMIN D3) 5,000 unit tab Take 1 tablet by mouth once daily. FAMILY HISTORY Problem Relation Age of Onset - Adopted: Yes - No Ocular Disease No Family History - Diabetes Mother - Hypertension Mother - Heart Mother - Arthritis Mother - Aneurysm Mother - Stroke Mother - Kidney Disease Mother - Headache/migraine [OTHER] Mother - Heart Father - Hypertension Father - GI Father Chrons - Cancer Father - Diabetes Father - [place] [OTHER] Father Social History Substance Use Topics - Smoking status: Former Smoker Packs/day: 0.50 Years: 1.00 Types: Cigarettes - Smokeless tobacco: Current User Types: Snuff Comment: for 36 years , 1 can of snuff daily - Alcohol use No Comment: socially PHYSICAL EXAM BP 118/80 Pulse 97 Temp 36.7 ?C (98 ?F) (Temporal Artery) Resp 16 Wt 101.6 kg (224 lb) SpO2 98% BMI 37.56 kg/m2 General Appearance: well appearing, in no acute distress, alert Skin: Skin color, texture, turgor normal for age; Head: normocephalic, atraumatic Eyes: conjunctiva pink and moist, no icterus, sclera white, non-injected Lungs: Lungs clear to auscultation. No wheezing, rhonchi, rales Heart: RRR without murmur, gallop, or rubs. No ectopy TETANUS due on 1988 ONE PNEUMOVAX PRIOR TO AGE 67 due on 1996 LIPID SCREEN due on 03/16/2021 INFLUENZA Completed ASSESSMENT/PLAN: 1. Low testosterone level in male - ICD9: 790.99, ICD10: R79.89 (primary diagnosis) - TESTOSTERONE, FREE AND TOTAL - LIPID PANEL BASIC - HEPATIC FUNCTION PNL - CBC - Discussed need to keep follow up with PCP next month. Patient verbalizes understanding 2. Medication monitoring encounter - ICD9: V58.83, ICD10: Z51.81 - LIPID PANEL BASIC - HEPATIC FUNCTION PNL - CBC Prescription instructions reviewed with patient as applicable. Potential red flag symptoms discussed with the patient. Reviewed appropriate action plan to take if red flag symptoms occur. Patient agreeable to treatment plan. Jules Taylor APRN.DORA Taylor APRN.ISSAC JOHN 11/18/2017 4:32 PM Signed Please have labs done first thing in the morning if possible. Referring Provider: SELF [200] Allergies As of Date: 11/18/2017 (No Known Allergies) Date Reviewed: 11/18/2017 Reviewed by: Nalini Taylor Ma - Fully Assessed Reason for Visit: Recheck [92] Cmt: Medication follow up Primary Visit Diagnosis:Low testosterone level in male [R79.89] Other Visit Diagnosis:Medication monitoring encounter [Z51.81] Order(s):TESTOSTERONE, FREE AND TOTAL [SQFTESTO] Order #: [id number] FUTURE LIPID PANEL BASIC [SQLIPB] Order #: [id number] FUTURE HEPATIC FUNCTION PNL [SQHFP] Order #: [id number] FUTURE CBC [SQCBC] Order #: [id number] FUTURE Prescriptions as of 11/18/2017 Sig: TESTOSTERONE CYPIONATE 200 MG* Inject 1 mL intramuscularly e* LISINOPRIL 5 MG TABLET Take 1 tablet by mouth once d* TESTOSTERONE 20.25 MG/1.25 GR* 40.5 mg applied once daily in* CHOLECALCIFEROL (VITAMIN D3) * Take 5,000 Units by mouth onc* CHOLECALCIFEROL (VITAMIN D3) * Take 1 tablet by mouth once d* Problem List As Of Date 11/18/2017 Noted Resolved Meibomian gland dysfunction (MGD) of upper and *INVALID FOR*10/12/2016 Acute bacterial conjunctivitis of both eyes [H1*INVALID FOR*10/12/2016 Vitreous floaters [H43.399] INVALID FOR*10/12/2016 Myopia [H52.10] INVALID FOR*10/12/2016 Astigmatism of both eyes [H52.203] INVALID FOR*10/12/2016 IFG (impaired fasting glucose) [R73.01] INVALID FOR* Vitamin D insufficiency [E55.9] INVALID FOR* Low testosterone level in male [R79.89] INVALID FOR* Elevated BP without diagnosis of hypertension [*INVALID FOR* Fatigue [R53.83] INVALID FOR* Other instructions from your clinician: Please have labs done first thing in the morning if possible. Encounter Status:Closed by JULES TAYLOR CNP on 11/18/17 DORATOUTREACH Observed: 09/10/2017 Status: COMPLETED Source: [place] 12:00 AM [facility] REPOSITORY Patient Outreach (FAMPST) KATIE OLMEDO ([id number]) 1975 M Date Time Provider Department [facility] your visit today, we recorded the following information about you: Allergies As of Date: 09/10/2017 (No Known Allergies) Date Reviewed: 03/20/2017 Reviewed by: Vivi Mendez LPN - Fully Assessed Visit Diagnosis:Medication management [Z79.899] Order(s):HGB A1C [OYLSB8B] Order #: [id number] FUTURE Prescriptions as of 09/10/2017 Sig: LISINOPRIL 5 MG TABLET Take 1 tablet by mouth once d* TESTOSTERONE CYPIONATE 200 MG* Inject 1 mL intramuscularly e* TESTOSTERONE 20.25 MG/1.25 GR* 40.5 mg applied once daily in* CHOLECALCIFEROL (VITAMIN D3) * Take 5,000 Units by mouth onc* CHOLECALCIFEROL (VITAMIN D3) * Take 1 tablet by mouth once d* Problem List As Of Date 09/10/2017 Noted Resolved Meibomian gland dysfunction (MGD) of upper and *INVALID FOR*10/12/2016 Acute bacterial conjunctivitis of both eyes [H1*INVALID FOR*10/12/2016 Vitreous floaters [H43.399] INVALID FOR*10/12/2016 Myopia [H52.10] INVALID FOR*10/12/2016 Astigmatism of both eyes [H52.203] INVALID FOR*10/12/2016 IFG (impaired fasting glucose) [R73.01] INVALID FOR* Vitamin D insufficiency [E55.9] INVALID FOR* Low testosterone level in male [R79.89] INVALID FOR* Elevated BP without diagnosis of hypertension [*INVALID FOR* Fatigue [R53.83] INVALID FOR* Encounter Status:Closed by LBE Security Master, PRODUSER on 10/20/17 ALLERGIES ALLERGIES DATE TYPE / CODE NAME / CODE REACTION SEVERITY SOURCE 01/14/2016 Drug No Known Unknown [facility] Allergy/416 Allergies/[id number] Hospital [id number](SNOM 0388(RXNORM) Repository ED CT) Drug NO KNOWN [facility] Class/36629 ALLERGIES [address] [place] [address]3(SNOMED Repository CT) ENCOUNTERS ENCOUNTERS ADMIT/DISCHARGE ACCOUNT ADMITTING ENCOUNTER LOCATION SOURCE NUMBER CLASS 08/11/2018/08/11/20 [id number] Ambulatory [address] Repository 08/01/2018 [id number] Ambulatory BMSBuilding:W [facility] Repository 08/01/2018 [id number] Ambulatory [facility] ing:LAB.FUTUR Repository E 06/11/2018/06/13/20 [id number] Ambulatory [address] Repository 05/31/2018/05/31/20 [id number] Ambulatory [address] Repository 03/04/2018/03/04/20 [id number] Ambulatory [address] Repository 12/04/2017/12/06/19 [id number] Ambulatory [address] Repository 11/29/2017/11/30/19 [id number] Ambulatory [address] Repository 11/23/2017/11/24/19 [id number] Ambulatory [address] Repository 11/18/2017/11/19/[id number] Repository PAYERS PAYERS ENCOUNTER GUARANTOR PAYER SUBSCRIBER SOURCE 08/01/2018 KATIE Adler Primary KATIE C [place] [address] Insurance:ANTHEMPolic SULLIVANDOB: [address] y Number: [id number] Hospital [address]Tbc: 330 [id number] Repository [phone] () ve Date:[id number] [place] [address] 68186DC: 08/01/2018 Secondary NOT GIVENUNK Ritesh Insurance:SELF PAY [facility] Number: Effective Repository Date:2018-08-01 08/01/2018 KATIE C Primary KATIE C [place] [address] Insurance:ANTHEMPolic SULLIVANDOB: [address] y Number: [id number] Hospital [address]Awd: 330 [id number] Repository [phone] () ve Date:[id number] [place] [id number]: 08/01/2018 Secondary NOT GIVENUNK [place] Insurance:SELF PAY [facility] Number: Effective Repository Date:2018-08-01
== END ==
PROVIDERS: Referring Provider Otolaryngology; Visit Provider Otolaryngology
DX: Z01.818 Encounter for other preprocedural examination (principal)
CPT/HCPCS: 36415; 80048; 85027; 93005

== ENCOUNTER 2019-03-03 20:12 | Emergency (ER) | payer BC, SELFPAY ==
[2019-03-03 20:12] VITALS: BP 178/98; PULSE 90; RESP 18; TEMP 36.7; O2SAT 97; BMI 38.2
--- NOTE | 2019-03-03 22:04 | ED.VISSUMM ---
- ER Visit Summary Date of Service: 03/03/19 Chief Complaint: Left eye redness History of Present Illness: The patient is a 43 M who presents with left eye redness and swelling that began yesterday. Patient states he was grinding and thinks something got into his eye. Patient went to an urgent care. Patient states the physician there stained his eye and did not see any abrasions or foreign bodies. Patient was given a prescription for ophthalmic antibiotics. Patient states he still feels like there is something in his eye. Patient states the eye is now more red. Patient admits to some watering. Patient denies any visual changes. Physical Examination: Vital signs are stable. Patient is afebrile. Patient is in no acute distress. Pupils are equal, round, and reactive to light bilateral. Conjunctiva was injected on the left. There are no visualized foreign bodies noted. Anterior chamber is clear. There is no hyphema. Tetracaine and fluorescein dye was applied. There is a small punctate corneal abrasion over the medial aspect of the left cornea at approximately 9 o'clock position. There are no foreign bodies visualized on slit-lamp examination. Cranial nerves II through XII are intact. There are no focal motor or sensory deficits noted. Emergency Department Course and Treatment: Patient was advised he does have a small punctate corneal abrasion however there is no foreign body noted. Patient was instructed to continue the antibiotic ophthalmic ointment. 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 Patient was instructed to avoid using his contacts until that time. Patient understood and was agreeable with the plan. All questions were answered. Disposition: Discharge home Impression: Corneal abrasion left eye This note was generated with [employer] dictation software. It may contain incorrect words, spelling, and punctuation that were not noted in review of the chart prior to signing ED Disposition - Plan for ED Patient: Disposition: Home or Assisted Living Diagnosis: Corneal abrasion, left Instructions: Corneal Abrasion Referrals: Orlin Silver DO [Primary Care Provider] - 3-5 Days
[2019-03-03] MEDS: Fluorescein 1 MG STRIP 1 STRIP LEFT EYE (22:16)
[2019-03-03] MEDS: Tetracaine 0.5% Ophthalmic Bottle 1 DRP LEFT EYE (22:17)
[2019-03-03 22:23] VITALS: BP 148/105
== END 2019-03-03 22:24 | disposition home or self-care (01) ==
PROVIDERS: Emergency Provider Emergency Medicine; Family Provider Student in an Organized Health Care Education/Training Program; PCP Student in an Organized Health Care Education/Training Program
DX: S05.02XA Injury of conjunctiva and corneal abrasion without foreign body, left eye, initial encounter (principal); R51 Headache; X58.XXXA Exposure to other specified factors, initial encounter; Y93.9 Activity, unspecified; Y92.9 Unspecified place or not applicable; I10 Essential (primary) hypertension; Z79.899 Other long term (current) drug therapy; F17.220 Nicotine dependence, chewing tobacco, uncomplicated
CPT/HCPCS: 99282

== ENCOUNTER 2019-05-24 10:09 | Emergency (ER) | payer BC, SELFPAY ==
[2019-05-24 10:10] VITALS: BP 171/110; PULSE 108; RESP 20; TEMP 36.6; O2SAT 99; BMI 34.9
--- NOTE | 2019-05-24 10:21 | CT_ITS ---
STUDY: CT ABDOMEN AND PELVIS WITHOUT CONTRAST REASON FOR EXAM: Male, 43 years old. Left lower quadrant pain, nausea and diaphoresis RADIATION DOSAGE (If Supplied By Facility): CTDIvol = ( 17.08 ) mGy, DLP = ( 900.48 ) mGycm TECHNIQUE: Transaxial images were obtained from the dome of the diaphragm to the symphysis pubis without oral contrast, and without intravenous contrast. Sagittal and coronal images were reconstructed. Individualized dose optimization techniques were used for this CT. COMPARISON: None. FINDINGS: The visualized lung bases are unremarkable. The visualized portions of the heart are within normal limits. Normal liver. Normal gallbladder and extrahepatic biliary system. Normal spleen. Normal pancreas. Normal bilateral adrenal glands. There are few small stones in the right kidney without evidence of hydronephrosis measuring about 2 to 3 mm each. There are few small stones in the left kidney, the largest is in the upper pole measuring about 4 mm. There is mild left hydronephrosis. There is a 7 mm in diameter and 10 mm in length stone in the proximal left ureter. There is mild left perinephric stranding. Normal visualized stomach. Densities are seen in small bowel loops which may represent undigested medications. There is fecal retention. There is thickening of the descending colon likely due to underdistention. There is no evidence of acute diverticulitis. The appendix is visualized and appears normal. There is minimal tortuosity of the abdominal aorta. Normal inferior vena cava. Normal retroperitoneum. Normal urinary bladder. Normal abdominal wall. There are degenerative changes of the lower lumbar spine at the level of L5-S1. CT/Abdomen/Pelvis without Cont IMPRESSION: 1. Mild left hydronephrosis due to 7 mm stone in the proximal left ureter. 2. Small bilateral nonobstructing renal stones. 3. Otherwise no demonstrated acute process. Electronically Signed: Derek Stewart MD at 11:02 EDT Tel , Service support ,
--- NOTE | 2019-05-24 10:22 | ED.VISSUMM ---
- ER Visit Summary Date of Service: 05/24/19 Chief Complaint: Left lower quadrant pain History of Present Illness: The patient is a 43 M presenting with left lower quadrant pain. Patient states this started today. It was gradual in onset. He has nausea with no vomiting. He had a normal bowel movement yesterday. Denies dysuria or hematuria. He has a history of kidney stones but states this feels different. Denies recent trauma. Denies other complaints. Physical Examination: Vitals are stable. Patient is afebrile. Alert no acute distress. HEENT exam is unremarkable. Neck is supple. Lungs are clear and equal bilaterally. Heart is regular rate and rhythm. Abdomen is soft left lower quadrant tenderness with no rebound or guarding : No testicular tenderness. Extremities are unremarkable. Skin is warm and dry. No focal neurologic deficit. Remainder of exam is unremarkable. Emergency Department Course and Treatment: Patient was given toradol, Zofran IV. CT flank shows mild left hydronephrosis due to 7 mm stone in the proximal left ureter. Small bilateral nonobstructing renal stones. Otherwise no demonstrated acute process. CBC, chemistries unremarkable other than creatinine 1.62. Urinalysis shows 0 white blood cells, 0-5 red blood cells. On reevaluation, patient is resting comfortably. Advised to follow-up with Dr. Bass. Advised return to ED if worsening complaints. Disposition: Discharge home Impression: Urolithiasis This note was generated with [employer] dictation software. It may contain incorrect words, spelling, and punctuation that were not noted in review of the chart prior to signing ED Disposition - Plan for ED Patient: Disposition: Home or Assisted Living Instructions: KIDNEY STONE w/ Colic Prescriptions: Oxycodone HCl/Acetaminophen [Percocet 5/325] 1 tab PO Q6H PRN PRN 3 Days #12 tab PRN Reason: Pain Prescription Printed Ondansetron [Zofran Odt] 4 mg PO Q8H PRN PRN #10 tab PRN Reason: Nausea Prescription Printed Referrals: Orlin Silver DO [Primary Care Provider] - Sunil Bass MD [STAFF PHYSICIAN] -
[2019-05-24] MEDS: 0.9% Normal Saline 1,000 ML 1000 ML IV (10:31)
[2019-05-24 10:33] LABS: Absolute Lymphocyte Count 2.66 X10^3/uL (0.83-4.51); Absolute Neutrophil Count 5.4 X10^3/uL (2.0-7.7); Basophil# 0.04 X10^3/uL; Basophil% 0.4 % (0-1); Eosinophil# 0.12 X10^3/uL; Eosinophils% 1.3 % (0-5); Hematocrit 47.2 % (40-54); Hemoglobin 15.8 g/dL (13.0-16.5); Lymphocyte # 2.66 X10^3/ul (4.0); Lymphocyte % 29.4 % (19-41); Mean Corp Hgb Conc 33.5 g/dL (32-36); Mean Corpuscular Hgb 31.9 pg (27.0-32.0); Mean Corpuscular Volume 95.2 fL (80-94); Mean Platelet Vol. 9.6 fl (6.2-12.0); Monocyte# 0.78 X10^3/uL; Monocyte% 8.6 % (0-10); NRBC Flagged by Analyzer 0 % (0-5); Neutrophil # 5.38 X10^3/uL (2.7-7.7); Neutrophil % 59.6 % (47-70); Platelet Count 265 K/mm3 (150-450); RBC Distribution Width CV 13.6 % (11.6-14.6); RBC Distribution Width SD 47.5 fl (35.1-43.9); Red Blood Count 4.96 M/mm3 (4.6-6.2)
[2019-05-24] MEDS: Ketorolac 30 MG/ML Syringe IV (10:36)
[2019-05-24 10:45] LABS: Anion Gap 5 (5-15); BUN 16 mg/dL (7-18); BUN/Creat Ratio 9.9 RATIO (10-20); Calcium,Total 8.2 mg/dL (8.5-10.1); Chloride 108 mmol/L (98-107); Creatinine, Serum 1.62 mg/dL (0.70-1.30); EST Glomerular Filtration Rate 50 mL/min (>60); Est Glom Filt Rate - Afr Amer 60 mL/min (>60); Glucose 116 mg/dL (74-106); Potassium 3.8 mmol/L (3.5-5.1); Sodium Level 138 mmol/L (136-145)
[2019-05-24 11:22] VITALS: BP 146/98; PULSE 78; RESP 18; O2SAT 97
[2019-05-24 11:24] LABS: Bacteria 0 SEEN /hpf (None Seen); Mucous, Urine 0 SEEN /hpf (<or=2+); White Blood Cells 0 SEEN /hpf (0-5)
[2019-05-24 11:28] LABS: Color, Urine Yellow (Yellow); Glucose, Dipstick Normal (Normal); Ketone-Dipstick Negative (Negative); Leukocyte Esterase-Dipstick Negative /ul (Negative); Nitrite-Dipstick Negative (Negative); Occult Blood-Urine 25 /ul (Negative); Protein-Dipstick 15 mg/dl (Negative); Specific Gravity, Urine 1.015 (1.002-1.030); Urine Bilirubin Dipstick Negative (Negative); Urine Clarity Sl. Cloudy (Clear); Urine Urobilinogen Normal (Normal)
[2019-05-24 11:35] LABS: Red Blood Cells-Urine 0-5 SEEN /hpf (0-5); Squamous Epithelial Cells - UA 0-5 SEEN /hpf (0-5)
--- NOTE | 2019-05-24 11:44 | ED.DEP ---
ED Disposition - Plan for ED Patient: Instructions: KIDNEY STONE w/ Colic Prescriptions: Oxycodone HCl/Acetaminophen [Percocet 5/325] 1 tablet PO Q6H PRN PRN 3 Days #12 tablet PRN Reason: Pain Ondansetron [Zofran Odt] 4 mg PO Q8H PRN PRN #10 tablet PRN Reason: Nausea Referrals: Orlin Silver DO [Primary Care Provider] - Sunil Bass MD [STAFF PHYSICIAN] -
[2019-05-24] MEDS: 0.9% Normal Saline 1,000 ML 999 ML IV (11:47)
[2019-05-24 12:14] VITALS: BP 156/90; PULSE 78; RESP 18; O2SAT 97
== END 2019-05-24 12:15 | disposition home or self-care (01) ==
LOC: ED 11:11
PROVIDERS: Emergency Provider Emergency Medicine; Family Provider Student in an Organized Health Care Education/Training Program; PCP Student in an Organized Health Care Education/Training Program
DX: N13.2 Hydronephrosis with renal and ureteral calculous obstruction (principal); I10 Essential (primary) hypertension; Z87.442 Personal history of urinary calculi; Z79.899 Other long term (current) drug therapy
CPT/HCPCS: 74176; 80048; 81001; 85025; 96361; 96374; 99284; J7030; A4216; J2405

== ENCOUNTER 2019-05-29 13:33 | Day surgery (SDC) | payer BC, SELFPAY ==
--- NOTE | 2019-05-29 13:41 | RAD_ITS ---
STUDY: X-RAY - ABDOMEN/PELVIS REASON FOR EXAM: Male, 43 years old. Pain renal stones TECHNIQUE: AP supine and decubitus views of the abdomen and pelvis. COMPARISON: CT scan abdomen and pelvis May 24, 2019 FINDINGS: Normal visualized lung bases. There are distended loops of small bowel suspicious for ileus. There is no demonstrated free abdominal air. There are punctate stones in both kidneys. Inferior to the left kidney overlying the left psoas muscle is a sizable calcification measuring 1 cm. Normal soft tissue structures. Normal visualized osseous structures. RAD/Abdomen Single View IMPRESSION: There is a calcification measuring 1.05 cm overlying the left psoas muscle highly suspicious for a persistent large obstructing stone. Recent study demonstrated moderate hydronephrosis and multiple punctate stones in both kidneys. Electronically Signed: Cary Verdugo MD at 15:00 EDT Tel , Service support ,
[2019-05-29 14:04] VITALS: BP 143/96; PULSE 89; RESP 16; TEMP 37.3; O2SAT 95; BMI 36.7
[2019-05-29] MEDS: Lactated Ringers 1,000 ML 100 ML IV (14:14)
[2019-05-29] MEDS: Cefazolin 2 GM in 0.9% Normal Saline 100 ML IV (16:07)
--- NOTE | 2019-05-29 17:18 | DCINST_ITS ---
Discharge Diet: Light diet - advance as tolerated Discharge Activity: Return to Normal Activity Call your doctor if you observe: Fever of 101 or Higher Suture Line Care: Avoid Pulling/Pushing, Avoid Pinching/Bending Instructions: Shock Wave Lithotripsy, Ureteral Stents Additional Instructions: stone broke up well you hava a stent call office to make appt to remove stent Allergies/Adverse Reactions: Allergies No Known Allergies Allergy (Verified 05/29/19 14:00) Medications to take at Discharge Lisinopril 5 mg PO DAILY 03/03/19 Testosterone Cypionate 0.75 ml IM Q10D 03/03/19 Ascorbic Acid [Vitamin C] 5,000 mg PO DAILY 05/24/19 Multivitamin [Multiple Vitamins] 1 ea PO DAILY 05/24/19 Ondansetron [Zofran Odt] 4 mg PO Q8H PRN PRN #10 tab 05/24/19 Oxycodone HCl/Acetaminophen [Percocet 5/325] 1 tab PO Q6H PRN PRN 3 Days #12 tab 05/24/19 Oxycodone HCl/Acetaminophen [Percocet 5/325] 1 tab PO Q4H PRN PRN 5 Days #20 tab 05/29/19 The following prescriptions were given: Oxycodone HCl/Acetaminophen [Percocet 5/325] 1 tab PO Q4H PRN PRN 5 Days #20 tab PRN Reason: Pain Prescription Printed Primary Care Physician: Orlin Silver DO [Primary Care Provider] - Test Results: Test results from this visit will be discussed in further detail at your follow- up appointment, if applicable. Please Follow Up With: Sunil Bass MD When: please call to make an appointment.
--- NOTE | 2019-05-29 17:21 | OP.PCM_ITS ---
Report of Operation Date of Procedure: 05/29/19 Pre-Operative Diagnosis: Left ureteral calculi causing obstruction Post-Operative Diagnosis: Same Surgery/Procedure Performed:: Cystoscopy, left stent placement, interpretation fluoroscopic images, left extracorporeal shockwave lithotripsy Description of Surgical Findings:: 43-year-old male with a stone in the proximal left ureter presents the hospital today for treatment of the stone with shockwave lithotripsy there was explained to the patient before surgery is possible the stone may not break with the treatment, as possible he may need more than one treatment, is also possible he may need a stent to help pass the stone fragments. All his questions were answered beforehand. We did have to delay the surgery in our because the patient did chew tobacco earlier in the day. 43-year-old male taken back to the operating room after smooth induction of anesthesia he was placed in dorsolithotomy position penis and then we started with treatment of the stone we found the stone under fluoroscopy technique to put the stone in the F2 focal point of the lithotripter machine we then proceeded with shockwave lithotripsy at a rate of 90/min and working her power up to 9 kV. After 1700 shockwaves the stone still had not broken so we decided to place a stent. At that point the penis testicles were prepped and draped in usual sterile fashion within the bladder with a 21 [place] rigid cyst ourethroscope cannulated the left ureteral orifice with a Glidewire advanced up to the kidney I could see the wire hit the stone but would not go past the stone advance a Pollack catheter behind the wire and then I was able to get the wire past the stone. Once a wire passed the stone with the Pollick catheter passed a stone and then backloaded the Pollick catheter over the wire, and then over the wire advanced a 6 [place] by 26 cm stent we left the string of the stent for easy extraction in a few days. Once a stent was in good position, we then proceeded with shockwave lithotripsy we completed a total of 4000 shockwaves ranging up the power of 9 kV from 7 kV. After the treatment was completed patient anesthetic was reversed taken back to PACU in good condition we will see him next week with a KUB and remove the stent if the stone was broken up successfully. Type of Anesthesia:: General Drains: stent - Admit VTE Documentation VTE Present on Admission: No VTE Mechan Device Prophylaxis: SCD's
[2019-05-29 17:35] VITALS: BP 143/96; BP 145/88; PULSE 84; RESP 16; TEMP 36.2; O2SAT 100
[2019-05-29 17:45] VITALS: BP 143/96; BP 146/92; PULSE 80; RESP 16; O2SAT 100
[2019-05-29] MEDS: Ketorolac 15 MG/ML Vial IV (17:45)
[2019-05-29 18:00] VITALS: BP 142/94; BP 143/96; PULSE 83; RESP 16; TEMP 36.1; O2SAT 95
[2019-05-29 18:37] VITALS: BP 143/96
== END 2019-05-29 19:08 | disposition home or self-care (01) ==
LOC: SDC 13:33 → AC 13:35
PROVIDERS: Family Provider Student in an Organized Health Care Education/Training Program; PCP Student in an Organized Health Care Education/Training Program; Referring Provider Urology; Visit Provider Urology
PROC: (CPT 50590; principal; 2019-05-29 15:55)
DX: N13.2 Hydronephrosis with renal and ureteral calculous obstruction (principal); I10 Essential (primary) hypertension; Z87.442 Personal history of urinary calculi; Z79.899 Other long term (current) drug therapy; F17.220 Nicotine dependence, chewing tobacco, uncomplicated
CPT/HCPCS: 00872; 50590; 52332; 74018; J7120; C1769; C2617; J2405

== ENCOUNTER → 2019-06-01 12:18 | Outpatient (CLI) | payer BC, SELFPAY ==
[2019-05-29 14:04] VITALS: BMI 36.7
--- NOTE | 2019-06-01 12:21 | RAD_ITS ---
STUDY: X-RAY - ABDOMEN/PELVIS REASON FOR EXAM: Male, 43 years old. History of left kidney stone. ESWL 3 days ago. TECHNIQUE: Two AP supine views of the abdomen and pelvis. COMPARISON: AP supine view of the abdomen and pelvis May 09, 2019; CT abdomen and pelvis without contrast May 24, 2019. FINDINGS: Non-visualized lung bases. There is an unremarkable bowel gas pattern. There is no demonstrated free abdominal air. A double-J ureteral stent now extends from the region of the left renal pelvis to the urinary bladder. There is vague density about the proximal shaft of the stent at the level of the L2-3 interspace that may be fragments of the previously noted proximal ureteral stone. The visualized liver, spleen and kidneys are grossly normal in size and morphology. There are a few small calcified phleboliths in the pelvis. Normal visualized osseous structures. RAD/Abdomen Single View IMPRESSION: Left double-J ureteral stent now present with probable stone fragments still evident in the proximal left ureter. Electronically Signed: Fredy Hall MD at 16:49 EDT , Service support ,
== END ==
PROVIDERS: Family Provider Student in an Organized Health Care Education/Training Program; PCP Student in an Organized Health Care Education/Training Program; Referring Provider Urology; Visit Provider Urology
DX: N20.0 Calculus of kidney (principal)
CPT/HCPCS: 74018